=== PATIENT | male | born 1975 | race Caucasian/White ===

== ENCOUNTER → 2016-05-01 | Outpatient (CLI) | payer BC ==
--- NOTE | 2016-05-01 10:43 | DI ---
MRI LEFT KNEE SCAN, 05/01/2016 8:51 AM: Clinical History: Left knee pain. Previous Exam: 11/27/2010. Technique: Axial, coronal, and sagittal PD and fat saturated PD; axial T1 weighted. There is a small amount of edema in the subcutaneous fat anterior to the patella and patellar tendon, and along the lateral joint space. A large joint effusion is present with synovitis in the suprapate llar bursa and in the region of Hoffa's fat pad. There is a medial plica. Subchondral cystic changes are present in the central portion of the patella. Intermediate signal intensity is present in the me dial collateral ligament as well as in the meniscotibial and meniscofemoral ligaments and the medial patellofemoral ligament and medial retinaculum. These are all consistent with chronic partial tears. Increased signal intensity is present in the proximal half of the lateral collateral ligament consist ent with a partial acute tear. The anterior and posterior cruciate ligaments and the medial and later al menisci show no tears but there is degeneration of the anterior horn of the lateral meniscus. The quadriceps and patellar and popliteus tendons and the tendons of the medial and lateral heads of the gastrocnemius muscle are normal. The articular surfaces of the medial and lateral compartments are in tact. 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 Thinning is present in the lateral facet without fis suring. There is mild lateral subluxation of the patella. Readin. There is increased signal intensity in the LCL consistent with a partial tear. Chronic partial te ars are visible in the MCL, the meniscotibial and meniscofemoral ligaments, the medial retinaculum, a nd the medial patellofemoral ligament. Degenerative changes are present in the anterior horn of later al meniscus without evidence of a definite tear. There is a large joint effusion with synovitis in th e region of Hoffa's fat pad and suprapatellar bursa. There is a medial plica. 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 2. The ACL, PCL, medial meniscus, quadriceps and patellar and popliteus tendons, in the tendons of t he medial and lateral heads of the gastrocnemius muscle are normal. The medial and lateral compartmen ts are intact.
== END ==
LOC: MRI 08:21
PROVIDERS: ATTEND Orthopaedic Surgery
DX: M25.562 Pain in left knee (principal); S83.422A Sprain of lateral collateral ligament of left knee, initial encounter; M23.8X2 Other internal derangements of left knee; M22.42 Chondromalacia patellae, left knee; M25.462 Effusion, left knee
CPT/HCPCS: 73721

== ENCOUNTER → 2016-05-09 | Outpatient (CLI) | payer BC ==
[2016-05-12 09:07] LABS: CYCLIC CITRULLINATED PEPTIDEAB <15.6 U (()); HLA-B27 INTERPRETATION SEE COMMENTS (()); HLA-B27 RESULT Negative (()); RHEUMATOID FACTOR <15 IU/mL (<15)
== END ==
LOC: LAB 14:34
PROVIDERS: ATTEND Specialist
DX: M06.89 Other specified rheumatoid arthritis, multiple sites (principal); E55.9 Vitamin D deficiency, unspecified
CPT/HCPCS: 36415; 82306; 86200; 86431; 86812